=== PATIENT | male | born 1980 | race Hispanic/Latino ===

== ENCOUNTER 2016-11-17 21:25 | Emergency (ER) | payer SELFPAY ==
[2016-11-17 22:56] VITALS: BMI 23.7
[2016-11-17 23:15] VITALS: BP 149/89; PULSE 89; RESP 16; TEMP 98.3; O2SAT 99
--- NOTE | 2016-11-17 23:30 | ED PDOC ---
Arrival/HPI - General Chief Complaint: Lower Extremity Problem/Injury Time Seen by Provider: 11/17/16 23:03 Historian: Patient - History of Present Illness Narrative History of Present Illness (Text): 11/17/16 23:26 Renan Lowe is a 36 year old male who presents to the emergency department complaining of swelling and redness to right foot for past 4-5 days. States he took ciprofloxacin for the symptoms for minimal relief. States he had similar symptoms in the past a month prior which resolved after taking ciprofloxacin. States that swelling and pain has been worsening since onset. Denies fever, chills, headache, dizziness, chest pain, shortness of breath, or any other complaints at this time. Time/Duration: Other (4-5 days ) Symptom Course: Worsening Severity Level: Mild Activities at Onset: Light Past Medical History - Provider Review Nursing Documentation Reviewed: Yes - Infectious Disease Hx of Infectious Diseases: None - Musculoskeletal/Rheumatological Other/Comment: R rotator cuff tear - Psychiatric Hx Substance Use: No - Anesthesia Hx Anesthesia: No Family/Social History - Physician Review Nursing Documentation Reviewed: Yes Family/Social History: No Known Family HX Smoking Status: Heavy Smoker > 10 Cigarettes Daily Hx Alcohol Use: No Hx Substance Use: No Allergies/Home Meds Allergies/Adverse Reactions: Allergies No Known Allergies Allergy (Verified 11/17/16 23:24) Review of Systems - Physician Review All systems were reviewed & negative as marked: Yes - Review of Systems Constitutional: Normal. absent: Fatigue, Fevers Respiratory: Normal. absent: SOB, Cough, Sputum Cardiovascular: Normal. absent: Chest Pain, Palpitations Musculoskeletal: Other (right foot redness and swelling) Skin: Normal. absent: Rash, Pruritis Neurological: Normal. absent: Headache, Dizziness Psychiatric: Normal Physical Exam Vital Signs Reviewed: Yes Vital Signs Temp Pulse Resp BP Pulse Ox 11/17/16 23:14 98.3 F 89 16 149/89 99 Temperature: Afebrile Blood Pressure: Normal Pulse: Regular Respiratory Rate: Normal Appearance: Positive for: Well-Appearing, Non-Toxic, Comfortable Pain Distress: None Mental Status: Positive for: Alert and Oriented X 3 - Systems Exam Head: Present: Atraumatic, Normocephalic Pupils: Present: PERRL Conjunctiva: Present: Normal Respiratory/Chest: Present: Clear to Auscultation, Good Air Exchange. No: Respiratory Distress, Accessory Muscle Use Cardiovascular: Present: Regular Rate and Rhythm, Normal S1, S2. No: Murmurs Abdomen: Present: Normal Bowel Sounds. No: Tenderness, Distention, Peritoneal Signs Upper Extremity: Present: Normal Inspection. No: Cyanosis, Edema Lower Extremity: Present: NORMAL PULSES, Normal ROM, Swelling, Erythema, Neurovascularly Intact, Other (swelling and redness to the base of 5th metatarsal ). No: Edema, CALF TENDERNESS, Cyanosis, Deformity Neurological: Present: GCS=15, CN II-XII Intact, Speech Normal Skin: Present: Warm, Dry, Normal Color. No: Rashes Psychiatric: Present: Alert, Oriented x 3, Normal Insight, Normal Concentration Medical Decision Making ED Course and Treatment: 11/17/16 23:36 Impression: A 36 year old male who presents to the emergency department complaining of redness and swelling to base of right 5th metatarsal. Plan: -- Labs -- Blood culture -- Right Foot x-ray -- Reassess and disposition Progress Notes: 11/18/16 00:37 Patient wants to sign out against medical advice. I advised him personally to stay in the hospital for the completion of treatment and informed him of the risks of leaving the hospital. Patient states that he understands the risks of leaving and is adamant in his decision. Advised to present to emergency department for new/worsening symptoms and follow up with PMD within few days. Leaving Against Medical Advice (AMA): The patient is choosing to leave against medical advice. I have personally explained to the patient that choosing to do so may result in permanent bodily harm or . I have discussed at great length that without further evaluation and monitoring there may be unforeseen circumstances and/or deterioration causing permanent bodily harm or as a result of their choice. The patient is alert, oriented, and shows the mental capacity to make clear decisions regarding the patients health care at this time. The patient continues to wish to leave against medical advice. The patient has been advised that they should return to the emergency room immediately if they change their mind at any time, or if their condition begins to change or worsen in any way.. - Lab Interpretations I have reviewed the lab results: Yes - Scribe Statement The provider has reviewed the documentation as recorded by the Elissa Ortega Provider Attestation: Provider Scribe Attestation: All medical record entries made by the Scribe were at my direction and personally dictated by me. I have reviewed the chart and agree that the record accurately reflects my personal performance of the history, physical exam, medical decision making, and the department course for this patient. I have also personally directed, reviewed, and agree with the discharge instructions and disposition. Disposition/Present on Arrival - Present on Arrival Any Indicators Present on Arrival: No History of DVT/PE: No History of Uncontrolled Diabetes: No Urinary Catheter: No History of Decub. Ulcer: No History Surgical Site Infection Following: None - Disposition Have Diagnosis and Disposition been Completed?: Yes Diagnosis: Cellulitis of right foot Disposition: AGAINST MEDICAL ADVICE Disposition Time: 00:45 Condition: UNKNOWN Discharge Instructions (ExitCare): Cellulitis (ED) Prescriptions: Sulfamethoxazole/Trimethoprim [Bactrim DS 800 mg-160 mg] 1 tab PO BID #20 tab Forms: [employer] ([place]ian)
== END 2016-11-18 00:20 | disposition left against medical advice (07) ==
LOC: ED 21:25
DX: L03.115 Cellulitis of right lower limb (principal)